=== PATIENT | male | born 1990 | race Caucasian/White ===

== ENCOUNTER → 2018-11-16 | Outpatient (CLI) | payer OTHER ==
--- NOTE | 2018-11-16 21:11 | REP ---
CT CHEST WITHOUT CONTRAST: 11/16/2018. Clinical history: Right-sided chest pain radiating to mid left chest. Denies dyspnea or hemoptysis. Some nodular densities in the left chest and apical pleural thickening. Comparison: Chest x-ray 08/26/2018, sternum series 08/26/2018. Findings: Standard noncontrast CT performed. There is calcified granuloma in the periphery of the right upper lobe abutting the lateral chest wall and also in the superior segment of the left upper lobe in the mid upper chest. There is a superior segment right lower lobe calcified granuloma on image 50 and two more in the right mid lung zone one on either side of the fissure. Right medial upper lobe calcified granuloma abutting the mediastinal pleura anterior to the aortic arch. There is minor apical scarring noted. Heart is not enlarged and no pericardial thickening or effusion. The aorta is without aneurysm. There is no pathologic sized mediastinal or hilar adenopathy. Calcified granuloma noted at both [place]. This represents old granulomas disease. No noncalcified nodules or lung masses. I see no pleural thickening, pleural effusion, apical pleural scarring, or calcified pleural plaques. No pericardial thickening or effusion. No axillary or supraclavicular mass. Thyroid lobes grossly intact. The bone windows show the sternum with sclerosis and periosteal reaction in its central upper portion. This represents a healing non depressed fracture. This is best visualized on the sagittal images 58-65 of series 205 when reviewed in bone window settings. I do not see a visible or displaced rib fracture or healing rib fracture with costochondral junctions and rib cartilages appearing grossly symmetric and intact. There is no abnormal soft tissue swelling or edema in the chest wall. The clavicles, AC joints, visualized portions of humeral heads, scapulae and the thoracic spine with lower cervical regions show no fracture or focal lesion. The upper abdomen shows that portion of liver and spleen included to be intact. No free air under the diaphragm. Stomach filled with a recent meal. Adrenal glands normal. Upper poles kidneys intact. Gallbladder contracted from the recent meal. Visualized pancreas intact. Impression: 1. There is periosteal reaction sclerosis in junction of the middle upper 1/3 of the sternum representing a healing fracture. There is no depression of the fracture, it appears only the superficial cortex was involved. 2. No rib fractures or healing rib fractures noted. No pleural thickening, effusion or other acute parenchymal lung finding. 3. Old granulomatous disease in the lungs and mediastinum. Electronically Signed by Shin Jerez MD 11/17/2018 08:51 A
== END ==
LOC: M RAD 17:52
PROVIDERS: ATTEND Physician Assistant
DX: R91.8 Other nonspecific abnormal finding of lung field (principal); J84.10 Pulmonary fibrosis, unspecified; S22.20XD Unspecified fracture of sternum, subsequent encounter for fracture with routine healing; X58.XXXD Exposure to other specified factors, subsequent encounter; Y92.9 Unspecified place or not applicable

== ENCOUNTER → 2021-01-30 | Outpatient (CLI) | payer OTHER ==
--- NOTE | 2021-01-30 11:12 | REP ---
INDICATION: PAIN, SWELLING COMPARISON: None. TECHNIQUE: AP, lateral left tibia/fibula. FINDINGS: The osseous structures and joint spaces are intact and normal. There is no evidence for acute fracture or dislocation. Surrounding soft tissues are unremarkable. No subcutaneous emphysema or radiodense foreign body. IMPRESSION: Normal examination. No obvious abnormality appreciated by radiographic evaluation.. <Electronically signed by Prabhjot Aquino > 01/30/21 1109
== END ==
LOC: M WUC 10:09
PROVIDERS: ATTEND Physician Assistant
DX: M79.662 Pain in left lower leg (principal); R22.42 Localized swelling, mass and lump, left lower limb

== ENCOUNTER → 2021-01-30 | Outpatient (CLI) | payer OTHER ==
--- NOTE | 2021-01-30 11:51 | REP ---
INDICATION: LT LOWER LEG MASS VS CYST LUMP. COMPARISON: Left tibia fibula series 01/30/2021 TECHNIQUE: Sonographic evaluation in the area of a palpable finding in the left lower leg. FINDINGS: Sonographic evaluation of the palpable area in the left lower extremity shows underlying soft tissues with normal muscular striations and no gross mass, cyst, fluid collection or architectural distortion. No abnormal skin thickening. IMPRESSION: Negative soft tissue ultrasound left lower extremity in the area of reported palpable finding. For continued level of concern about a possible mass or persistent palpable finding, consideration for MRI of this region without and with contrast may be warranted. <Electronically signed by Shin Jerez > 01/30/21 1140
== END ==
LOC: M RAD 11:15
PROVIDERS: ATTEND Physician Assistant
DX: M79.662 Pain in left lower leg (principal); R22.42 Localized swelling, mass and lump, left lower limb

== ENCOUNTER → 2021-03-11 | Outpatient (CLI) | payer OTHER ==
[~2021-03-11] MED LIST: PROHANCE 279.3MG/ML 15ML VIAL As Ordered ONE; PROHANCE 279.3MG/ML 5ML VIAL As Ordered ONE
--- NOTE | 2021-03-11 11:41 | REP ---
INDICATION: LEG PAIN. COMPARISON: Radiographs and ultrasound 01/30/2021. TECHNIQUE: Is multiple sequences obtained in the axial, coronal and sagittal planes prior to and following the intravenous administration of 19 mL ProHance. FINDINGS: Skin markers are placed over the palpable lump in the anterolateral distal lower leg. There is no underlying cyst or mass. No underlying signal or enhancement abnormality. Visualized tibia and fibula demonstrate normal bone marrow signal with no bone marrow edema or occult fracture. No bone lesion is seen. Cortex is intact throughout. No other soft tissue signal abnormality or abnormal enhancement is seen. IMPRESSION: Negative MRI right lower leg with and without contrast. No evidence of mass or osseous abnormality. <Electronically signed by Cruz Mckenzie > 03/11/21 2181
== END ==
LOC: M RAD 10:15
PROVIDERS: ATTEND Family Medicine
DX: R22.42 Localized swelling, mass and lump, left lower limb (principal)
CPT/HCPCS: 73720; A9576

== ENCOUNTER 2021-07-02 10:14 | Emergency (ER) | payer OTHER ==
[~2021-07-02] VITALS: Ht 185.4 cm; Wt 96.9 kg
[2021-07-02] MEDS ORDERED: ASPIRIN 81 MG CHEW TABLET PO ONE (12:20)
[2021-07-02 13:20] LABS: BASO # 0.1 10^3/uL (0.0-0.2); BASO % 1.4 % (0.0-1.0); EOS # 0.2 10^3/uL (0.0-0.5); EOS % 3.1 % (0.0-3.0); HEMATOCRIT 45.4 % (42.0-52.0); HEMOGLOBIN 15.2 g/dl (13.5-17.5); LYMPH # 2.9 10^3/uL (1.5-5.0); LYMPH % 41.6 % (24.0-44.0); MEAN CORPUSCULAR HEMOGLOBIN 28.7 pg (27.0-33.0); MEAN CORPUSCULAR HGB CONC 33.5 g/dl (32.0-36.5); MEAN CORPUSCULAR VOLUME 85.7 fl (80.0-96.0); MONO # 0.7 10^3/uL (0.0-0.8); MONO % 9.3 % (2.0-8.0); NEUTROPHILS # 3.1 10^3/uL (1.5-8.5); NEUTROPHILS % 44.3 % (36.0-66.0); PLATELET COUNT, AUTOMATED 222 10^3/uL (150-450)
[2021-07-02 13:51] LABS: ALBUMIN 3.6 GM/DL (3.2-5.2); ALT/SGPT 31 U/L (12-78); BILIRUBIN,DIRECT 0.1 MG/DL (0.0-0.2); BILIRUBIN,TOTAL 0.5 MG/DL (0.2-1.0); BLOOD UREA NITROGEN 8 MG/DL (7-18); CALCIUM LEVEL 9.3 MG/DL (8.5-10.1); CARBON DIOXIDE LEVEL 27 MEQ/L (21-32); CHLORIDE LEVEL 107 MEQ/L (98-107); CK-MB VALUE MASS 1.7 NG/ML (<3.6); CPK CREATINE PHOSPHOKINASE 145 U/L (39-308); CREATININE FOR GFR 0.89 MG/DL (0.70-1.30); FREE T4 1.01 NG/DL (0.76-1.46); GLOMERULAR FILTRATION RATE > 60.0 (>60); GLUCOSE, FASTING 89 MG/DL (70-100); LIPASE 59 U/L (73-393); MB/CK RELATIVE INDEX 1.17 (< OR =4); POTASSIUM SERUM 4.3 MEQ/L (3.5-5.1); SODIUM LEVEL 138 MEQ/L (136-145); THYROID STIMULATING HORMONE 0.947 uIU/ML (0.358-3.740); TOTAL PROTEIN 6.8 GM/DL (6.4-8.2); TROPONIN I < 0.02 NG/ML (< 0.10)
[2021-07-02] MEDS ORDERED: ISOVUE-370 76% 100ML VIAL As Ordered ONE (13:58)
[2021-07-02 17:01] LABS: CK-MB VALUE MASS 1.3 NG/ML (<3.6); CPK CREATINE PHOSPHOKINASE 121 U/L (39-308); MB/CK RELATIVE INDEX 1.07 (< OR =4); TROPONIN I < 0.02 NG/ML (< 0.10)
[2021-07-02 17:49] VITALS: BP 130/73
== END 2021-07-02 17:52 | disposition home or self-care (01) ==
LOC: M ED 10:14
DX: R07.9 Chest pain, unspecified (principal); F17.200 Nicotine dependence, unspecified, uncomplicated
CPT/HCPCS: 36415; 71275; 80048; 80076; 82550; 82553; 83690; 84439; 84443; 84484; 85025; 93005; 93041; 94760; 99285; Q9967